=== PATIENT | female | born 1955 | race Caucasian/White ===

== ENCOUNTER 2017-05-30 09:46 | Outpatient (CLI) | payer BC ==
[2015-04-14 10:20] VITALS: BMI 22.9
[~2017-05-30 09:46] MED LIST: HYDROCODON-ACE1 EAC7 PO; HYDROCODONE-APA1 TAB PO; OXYBUTYNIN CHLOR5 MG; OXYBUTYNIN CHLOR5 MG PO; OYSTER SHELL C1 EAC1 PO; PHOSLO667 MG; PREMARIN0.3 MG; PREMARIN0.3 MG PO; SOMA350 MG PO; XANAX0.25 MG PO
== END 2017-05-30 12:06 ==
LOC: D.MAMMO 09:46
DX: Z12.31 Encounter for screening mammogram for malignant neoplasm of breast (principal)

== ENCOUNTER → 2017-06-07 14:01 | Outpatient (CLI) | payer BC ==
[2015-04-14 10:20] VITALS: BMI 22.9
== END | disposition home or self-care (01) ==
LOC: D.MAMMO 12:30
DX: R92.8 Other abnormal and inconclusive findings on diagnostic imaging of breast (principal)

== ENCOUNTER → 2018-08-27 07:53 | Outpatient (CLI) | payer BC ==
[2015-04-14 10:20] VITALS: BMI 22.9
== END | disposition home or self-care (01) ==
LOC: D.MRI 07:53
DX: M47.892 Other spondylosis, cervical region (principal)

== ENCOUNTER → 2018-09-03 17:26 | Outpatient (CLI) | payer BC ==
[2015-04-14 10:20] VITALS: BMI 22.9
== END | disposition home or self-care (01) ==
LOC: D.MAMMO 08:00
DX: Z12.31 Encounter for screening mammogram for malignant neoplasm of breast (principal)

== ENCOUNTER → 2019-02-11 09:50 | Outpatient (CLI) | payer MEDICARE ==
[2015-04-14 10:20] VITALS: BMI 22.9
== END | disposition home or self-care (01) ==
LOC: D.MRI 09:50
PROVIDERS: ATTEND Anesthesiology Pain Medicine
DX: M47.894 Other spondylosis, thoracic region (principal)

== ENCOUNTER → 2019-11-20 12:33 | Outpatient (CLI) | payer MEDICARE ==
[2015-04-14 10:20] VITALS: BMI 22.9
== END | disposition home or self-care (01) ==
LOC: D.MAMMO 12:33
PROVIDERS: ATTEND Family Medicine
DX: Z12.31 Encounter for screening mammogram for malignant neoplasm of breast (principal)